=== PATIENT | male | born 1940 | race Caucasian/White ===

== ENCOUNTER 2018-04-05 10:45 | Day surgery (SDC) | payer OTHER ==
[~2018-04-05] VITALS: Ht 180.3 cm; Wt 79.4 kg
[~2018-04-05 10:45] MED LIST: BUPIVACAINE/PF-EPI 0.25% 1:200K ONE; SUGAMMADEX 200 MG/2 ML IVPush ONE
[2018-04-05 12:00] VITALS: BP 117/80
[2018-04-05] MEDS ORDERED: VITAMIN D PO (12:00)
[2018-04-05] MEDS ORDERED: FISH OIL PO (12:00)
[2018-04-05] MEDS ORDERED: LACTATED RINGERS 1,000 ML IV SCH (12:24)
[2018-04-05] MEDS ORDERED: PROPOFOL 10 MG/ML, 20ML ONE (12:56)
[2018-04-05] MEDS ORDERED: CEFAZOLIN 1,000 MG ONE (13:15)
[2018-04-05] MEDS ORDERED: FENTANYL PF 100 MCG/2ML ONE (13:15)
[2018-04-05] MEDS ORDERED: HYDROmorphone 1 MG/ML, 1ML IV PRN (13:30)
[2018-04-05] MEDS ORDERED: FENTANYL PF 100 MCG/2ML IV PRN (13:30)
[2018-04-05] MEDS ORDERED: OXYcodone 5 MG/5 ML ORAL.SOL UDC PO PRN (13:30)
[2018-04-05] MEDS ORDERED: MORPHINE SULFATE 4 MG/ML, 1ML IVPush PRN (13:30)
[2018-04-05] MEDS ORDERED: HYDROcodone/APAP 7.5-325MG/15ML UDC PO PRN (13:30)
[2018-04-05] MEDS ORDERED: ROCURONIUM 10MG/ML,5ML ONE (13:36)
[2018-04-05] MEDS ORDERED: OXYcodone 5 MG/5 ML ORAL.SOL UDC ONE (14:44)
[2018-04-05] MEDS ORDERED: ACETAMINOPHEN 650 MG/20.3 ML UDC ONE (14:44)
[2018-04-05] MEDS ORDERED: MEPERIDINE/PF 50 MG/ML ONE (14:44)
[2018-04-05] MEDS: MEPERIDINE/PF 25MG/0.5ML IVPush PRN ×2 (14:48→15:14)
[2018-04-05] MEDS ORDERED: ACETAMINOPHEN 650 MG/20.3 ML UDC PO ONE (15:00)
== END 2018-04-05 17:30 | disposition home or self-care (01) ==
LOC: OUT 10:45
PROVIDERS: ATTEND Surgery
DX: K40.91 Unilateral inguinal hernia, without obstruction or gangrene, recurrent (principal); Z79.899 Other long term (current) drug therapy
CPT/HCPCS: 49651; 93005; C1727; C1781; J0690; J2175; J2704; J3010; J7120